=== PATIENT | female | born 1975 | race Caucasian/White ===

== ENCOUNTER → 2019-05-30 08:00 | Outpatient (CLI) | payer MEDICARE, SELFPAY ==
--- NOTE | 2019-05-30 08:07 | RAD_ITS ---
STUDY: X-RAY - ESOPHAGUS (BARIUM SWALLOW) WITH FLUOROSCOPY REASON FOR EXAM: Female, 44 years old. One-month history of dysphasia. TECHNIQUE: 18 view(s) of the esophagus were obtained following swallowing of barium. FLUOROSCOPY TIME (if supplied): (0:56) minutes/seconds COMPARISON: None. FINDINGS: There is no demonstrated esophageal foreign body. There is no demonstrated stricture or mucosal abnormality. Normal gastroesophageal junction, without a demonstrated hiatal hernia. The patient ingested a 12 mm tablet of barium. The tablet is trapped in the distal portion of the esophagus. Normal visualized aortic arch and descending thoracic aorta. Normal visualized pulmonary parenchyma. Normal visualized osseous structures of the thorax. RAD/Esophagus Only IMPRESSION: The 12 mm tablet at bedtime is trapped at the distal portion of the esophagus. Electronically Signed: Ac Varela, at 14:45 EST , Service support ,
== END ==
PROVIDERS: Family Provider Family Medicine; PCP Family Medicine; Referring Provider Otolaryngology; Visit Provider Otolaryngology
DX: R13.10 Dysphagia, unspecified (principal)
CPT/HCPCS: 74220

== ENCOUNTER → 2021-03-21 14:20 | Outpatient (CLI) | payer MEDICARE, MEDICAID, SELFPAY ==
[2021-03-21 16:21] LABS: Absolute Lymphocyte Count 1.94 X10^3/uL (0.83-4.51); Absolute Neutrophil Count 2.9 X10^3/uL (2.0-7.7); Basophil# 0.07 X10^3/uL; Basophil% 1.2 % (0-1); Eosinophil# 0.13 X10^3/uL; Eosinophils% 2.3 % (0-5); Hematocrit 40.2 % (37-47); Hemoglobin 13.9 g/dL (12.0-15.0); Lymphocyte # 1.94 X10^3/ul (0.83-4.51); Mean Corp Hgb Conc 34.6 g/dL (32-36); Mean Corpuscular Hgb 30.5 pg (27.0-32.0); Mean Corpuscular Volume 88.4 fL (81-99); Mean Platelet Vol. 10.9 fl (6.2-12.0); Monocyte# 0.65 X10^3/uL; Monocyte% 11.4 % (0-10); NRBC Flagged by Analyzer 0 % (0-5); Neutrophil % 50.9 % (47-70); Platelet Count 252 K/mm3 (150-450); RBC Distribution Width CV 11.6 % (11.6-14.6); RBC Distribution Width SD 37.1 fl (35.1-43.9); Red Blood Count 4.55 M/mm3 (4.2-5.4); White Blood Count 5.7 K/mm3 (4.4-11.0)
[2021-03-21 17:15] LABS: AST(SGOT) 6 U/L (15-37); Alanine Aminotransfer ALT/SGPT 14 U/L (13-56); Albumin, Serum 3.6 g/dL (3.2-5.0); Alkaline Phosphatase 77 U/L (45-117); Anion Gap 8 (5-15); BUN 11 mg/dL (7-18); BUN/Creat Ratio 18.4 RATIO (10-20); Calcium,Total 8.9 mg/dL (8.5-10.1); Chloride 105 mmol/L (98-107); Cholesterol 131 mg/dL (200); EST Glomerular Filtration Rate 116 mL/min (>60); Est Glom Filt Rate - Afr Amer 140 mL/min (>60); Globulin 3.6 g/dL (2.2-4.2); Glucose 197 mg/dL (74-106); High Density Lipoprotein 39 mg/dL; Potassium 3.4 mmol/L (3.5-5.1); Protein, Total 7.2 g/dL (6.4-8.2); Sodium Level 137 mmol/L (136-145); T4 Free Direct 1.35 ng/dL (0.76-1.46); Thyroid Stim Hormone (TSH) 1.14 uIU/mL (0.358-3.74); Triglycerides 64 mg/dL; Very Low Density Lipoprotein 13 mg/dL (5-40)
[2021-03-23 10:11] LABS: Thyroid Peroxidase AB < 8 IU/mL (0-34)
== END ==
PROVIDERS: Referring Provider Nurse Practitioner Adult Health; Visit Provider Nurse Practitioner Adult Health
DX: E06.9 Thyroiditis, unspecified (principal)
CPT/HCPCS: 36415; 80053; 80061; 84439; 84443; 85025; 86376

== ENCOUNTER → 2021-03-22 10:33 | Outpatient (CLI) | payer MEDICARE, MEDICAID, SELFPAY ==
--- NOTE | 2021-03-22 10:35 | US_ITS ---
STUDY: THYROID ULTRASOUND REASON FOR EXAM: Female, 45 years old. THYROIDITIS TECHNIQUE: Ultrasound evaluation of the thyroid was performed with real-time and static rosado-scale imaging. COMPARISON: None. FINDINGS: RIGHT LOBE: The right lobe of the thyroid gland measures 5.8 x 2.0 x 1.4 cm. There is a heterogeneous echotexture. In the mid right thyroid assist partially solid partially cystic nodule measuring 1.0 x 0.8 x 0.5 cm. No solid portion appears to be internal vascular flow.. In the mid to posterior right thyroid is a solid partially cystic nodule with no vascular flow measuring 4 x 4 by 3 mm. In the mid right thyroid there is a solid or cystic nodule isoechoic with a small amount of flow measuring 5 x 5 x 4 mm. LEFT LOBE: The left lobe of the thyroid gland measures 5.4 x 2.2 x 2.0 cm. There is a heterogeneous echotexture. Within the upper aspect of the left thyroid there is a partially cystic partially solid isoechoic avascular 5 x 4 x 4 mm nodule. In the upper aspect of the left thyroid there is a partially solid partially cystic isoechoic nodule with minimal stephanie nodular flow measuring 8 x 10 x 5 mm. In the mid to lower left thyroid is a solid partially cystic isoechoic nodule with a small amount of stephanie nodular an anterior nodular vascular flow measuring 2.0 x 1.8 x 1.7 cm. ISTHMUS: The isthmus measures 2 . The regional lymph nodes are normal. US/Thyroid IMPRESSION: Bilateral thyroid nodules as detailed above. The largest of which is a left side dominant partly cystic partly solid almost encapsulated appearing mass with internal vascular flow measuring 2.0 x 1.8 x 1.7 cm. The clinical history states thyroiditis history of nodules. At the time of this study though no available comparison films. These would be very helpful to establish stability. Otherwise a biopsy would be recommended of the largest dominant mass on the left side given its features of solid cystic and vascularity and dominance. There is also a nodule in the right side that shows cystic dilatation with a nodular component with vascularity which also could be considered for biopsy in the appropriate setting. Electronically Signed: Pooja Iraheta MD at 3:23 EDT Tel , Service support ,
--- NOTE | 2021-03-22 10:36 | EKG12_ITS ---
Test Reason : PALPS Blood Pressure : / mmHG Vent. Rate : 082 BPM Atrial Rate : 082 BPM P-R Int : 140 ms QRS Dur : 054 ms QT Int : 360 ms P-R-T Axes : 074 050 049 degrees QTc Int : 420 ms Normal sinus rhythm Normal ECG Confirmed by HEATHER LOVE, JAMES ([id number]), digital editor LALO FERNANDO ([id number]) on 03/25/2021 1:13:08 PM Referred By: Lisette Saucedo Confirmed By:JAMES ROMERO MD
== END ==
PROVIDERS: Referring Provider Nurse Practitioner Adult Health; Visit Provider Nurse Practitioner Adult Health
DX: E06.9 Thyroiditis, unspecified (principal); E04.2 Nontoxic multinodular goiter; R00.2 Palpitations
CPT/HCPCS: 76536; 93005

== ENCOUNTER 2021-04-20 16:33 | Emergency (ER) | payer MEDICARE, MEDICAID, SELFPAY ==
[2021-04-20 16:34] VITALS: BP 173/95; PULSE 96; RESP 16; TEMP 36.9; O2SAT 98; BMI 31.2
--- NOTE | 2021-04-20 16:48 | EDS_ITS ---
HPI History of Present Illness Chief Complaint: Lower Extremity Injury Informant: patient Occured/Mechanism Comment: There is no history of trauma. Onset/Context/Timing Onset: Weeks (Onset approximately 3 weeks) Context: Gradual Onset Timing: Continuous and Waxes and wanes Quality of Pain: Dull and Aching Location: Anterior left leg over the tibia Current Severity: Mild Maximum Severity: Severe Worsened by: Walking, weightbearing, dorsiflexion against resistance, palpation Relieved by: Nothing Associated Symptoms Associated Symptoms: Negative for Parasthesia, Weakness and Loss of Funtion Narrative Narrative: Patient is a 46-year-old woman who presents with atraumatic left anterior leg pain that started approximate 3 weeks ago. She is purchased ISRA[place] hose, hose, other types of compressive stockings/hose that have not helped. She has not applied ice. She even tried different shoes. There is no history of trauma. There is no history of running on concrete. She states she is a [employer] and works on hard surfaces. She denies paresthesia, anesthesia or motor weakness. Tetanus Immunization: 5-10 years Prior similar symptoms: No Recent Illness/Hospitalization: No PFSH PFSH Medical History no medical history no medical history Home Medications naproxen 500 mg PO BID #14 tab 04/20/21 [Rx Last Taken Unknown] Allergy/AdvReac Type Severity Reaction Status Date / Time amoxicillin Allergy Rash Verified 04/20/21 16:36 cinnamon Allergy Angioedema Verified 04/20/21 16:36 nitrofurantoin Allergy Angioedema Verified 04/20/21 16:36 [From Macrobid] Social History (Updated 04/20/21 @ 16:[address] Arron Kate MD) household members: significant other Smoking Status: Current every day smoker tobacco type: cigarettes substance use type: does not use ROS ROS ED Constitutional Constitutional ED: Denies chills, fever(s), subjective, sweats or weight loss Musculoskeletal Musculoskeletal: Reports other Details: She denies symptoms of claudication. ; Denies arthralgias, back pain, myalgias or neck pain Integumentary Denies Abrasions or rash Neurologic Neurologic: Denies paresthesias or weakness Hematologic/Lymphatic Hematologic/Lymphatic: Denies easy bleeding, easy bruising or lymphadenopathy EXAM Physical Exam Const Vital Signs: 04/20/21 16:34 Temperature 98.5 F Temperature Source Temporal Pulse Rate 96 Respiratory Rate 16 Blood Pressure 173/95 H Blood Pressure Mean 121 Pulse Ox 98 Oxygen Delivery Method Room Air Positive well nourished and well developed General Appearance ED: well developed and NAD HEENT normocephalic and atraumatic Eyes PERRL Eyes Narrative: Extraocular tach. Sclerae anicteric. Cardio regular rate and regular rhythm Extremity normal to inspection and full ROM Extremity Narrative: Patient reports painful patient over the anterior left leg. Dorsi plantarflexion against resistance causes her discomfort anteriorly. There is no soft tissue swelling. There is no pedal edema. DP and PT pulse are palpable. General Extremety ED: Negative for cyanosis or edema General Extremity: Negative for cyanosis or edema Neuro oriented x3, CN's II-XII intact bilaterally and no sensory deficits noted Sensorium / Orientation: alert Motor Exam: strength 5/5 throughout Psych mental status grossly normal Skin no wounds Lesions: no lesions Rashes: no rashes Trauma: Negative for abrasion MDM MDM MDM Narrative Medical decision making narrative: Patient has muscular pain. This is exacerbated specifically with dorsiflexion and palpation. Patient was treated with NSAID she has no contraindication. Creatinine on March 2021 was 0.6. She has no history of peptic ulcer disease. Imaging is not warranted. Discharge Plan Triage Chief Complaint: Lower Extremity Injury ED Provider: Arron Kate Dx/Rx/DC Orders Clinical Impression: Pain of left anterior lower extremity Instructions: Treating?Strains and Sprains Prescriptions: New naproxen 500 MG tablet 500 mg PO BID Qty: 14 RF: 0 Primary Care Provider: Tamanna Lombardi Referrals: [facility] Tamanna Guerrero [Primary Care Provider] - 1 Week if not improving Disposition Disposition: Home, Self Care
[2021-04-20] MEDS: Naproxen 250 MG Tablet 500 MG PO (16:57)
== END 2021-04-20 17:04 | disposition home or self-care (01) ==
PROVIDERS: Emergency Provider Emergency Medicine
DX: M79.662 Pain in left lower leg (principal); F17.210 Nicotine dependence, cigarettes, uncomplicated
CPT/HCPCS: 99283

== ENCOUNTER → 2021-04-24 | Outpatient (CLI) | payer MEDICARE, MEDICAID, SELFPAY ==
--- NOTE | 2021-04-24 | FLU_PTH ---
PATIENT: KAUR WOOD LOC: [facility] U#:[id number] AGE/SX: 46/F ROOM: RE04/24/[address]: Dr. Arthur Allen MD : 1975 BED: DIS: 04/24/2021 SPEC #: [id number] RECD: 04/24/21 11:07 STATUS: DONNA FIDE #: [id number] SANDRA: 04/24/21 00:[address]: Arthur Allen DEPT: CYTOLOGY RECD BY: Sidney Melo ENTERED: 04/25/21 09:41 SP TYPE[facility] Tissues: A - Thyroid gland, NOS B - Thyroid gland, NOS C - Thyroid gland, NOS Procedures: Special Stain Group II Surgery Specimen Level IV Cytospin Fluid HEADER OPERATION: Ultrasound-guided fine needle aspiration left thyroid PRE-OP DIAGNOSIS: Left thyroid nodule TISSUE SUBMITTED: A ? Left thyroid nodule fluid, B ? Left thyroid nodule x4 slides, C ? Left thyroid nodule fluid DIAGNOSIS CYTOLOGY A. Fine needle aspiration, left thyroid nodule (cytospin and cell block): Negative for malignant cells, consistent with benign cyst contents. See comment. B. Fine needle aspiration, left thyroid nodule (smears): Negative, consistent with benign cyst contents. See comment. C. Fine needle aspiration, left thyroid nodule (cytospin and cell block): Consistent with benign thyroid cyst contents. AM:veronique 04/25/2021 COMMENT A. Rare benign follicular cells are present. B. Rare benign follicular cells are present. Clinical correlation is necessary. CYTOLOGY STUDY Slides are reviewed. CYTOLOGY GROSS A - Received is 30 ml of red CytoLyt fluid with particles labeled with the patient's name and and designated per the requisition as left thyroid nodule. Submitted for cytology preparation including cell block. B - Received are four smears labeled with the patient's name and designated per the requisition as left thyroid nodule. Submitted for staining. C - Received is <1 ml of red bloody fluid labeled with the patient's name and and designated per the requisition as left thyroid. Submitted for cytology preparation including cell block. / veronique 04/24/21 TC:5 CPT: 23934 x2, 61397 x2, 67209
== END | disposition home or self-care (01) ==
LOC: LABSPEC 13:42
PROVIDERS: Visit Provider Surgery
DX: E04.1 Nontoxic single thyroid nodule (principal)
CPT/HCPCS: 88108; 88305; 88313

== ENCOUNTER 2021-05-08 05:31 | Day surgery (SDC) | payer MEDICARE, MEDICAID, SELFPAY ==
[2021-05-08] VITALS (7 sets, daily range): BP systolic 140–168; BP diastolic 79–86; PULSE 66–93; RESP 18–97; TEMP 36.3–37.1; O2SAT 97–100; BMI 31.0
--- NOTE | 2021-05-08 | GASB_PTH ---
PATIENT: KAUR WOOD LOC: [facility] U#:[id number] AGE/SX: 46/F ROOM: RE05/08/[address]: Dr. Arthur Allen MD : 1975 BED: DIS: 05/08/2021 SPEC #: [id number] RECD: 05/08/21 12:37 STATUS: DONNA FIDE #: [id number] SANDRA: 05/08/21 00:[address]: Arthur Allen DEPT: SURGICAL PATHOLOGY RECD BY: Sidney Melo ENTERED: 05/08/21 12:37 SP TYPE: Gastric Bx OTHR DR: Lisette Saucedo, FINISHING RANGE SUPERVISOR-C [facility] Tissues: A - Gastric mucous membrane B - Stomach, NOS C - Esophageal mucous membrane D - Esophageal mucous membrane Procedures: Surgery Specimen Level IV HEADER OPERATION: EGD ([facility] [place] PRE-OP DIAGNOSIS: Dysphagia, GERD TISSUE SUBMITTED: A. Gastric antrum, B. Plaque lesser curvature posterior wall biopsy, C. Random esophageal biopsy at 25cm, D. Esophageal biopsy at 35cm MICROSCOPIC DIAGNOSIS A. Gastric antrum, biopsy: Mild gastritis. See microscopic description and comment. B. Plaque lesser curvature posterior wall biopsy: Fragments of gastric mucosa with recent hemorrhage. C. Random esophageal biopsy at 25cm: Fragments of gastroesophageal mucosa, no pathologic diagnosis. Intestinal metaplasia (goblet cell metaplasia) not identified. See comment. D. Esophageal biopsy at 35cm: Fragments of squamous mucosa, no pathologic diagnosis. 05/10/21 COMMENT A. The results of immunohistochemistry for Helicobacter pylori will be reported separately ([id number]). B. Alcian blue/PAS stain with matched control is used in the evaluation of the specimetn. MICROSCOPIC DESCRIPTION Slides are reviewed. A. The specimen shows fragments of gastric mucosa with chronic inflammatory cells infiltrates in the lamina propria consisting of lymphocytes and plasma cells consistent with mild chronic gastritis. GROSS DESCRIPTION A. Received is one container labeled with the patient name and designated gastric antrum. The specimen consists of multiple irregular fragments of light amaya soft tissue that in aggregate measure 1.0 x 0.3 x 0.1 cm. The specimen is totally submitted in one cassette. B. Received is one container labeled with the patient name and designated plaque lesser curvature posterior wall. The specimen consists of multiple irregular fragments of light amaya soft tissue that in aggregate measure 1.0 x 0.3 x 0.1 cm. The specimen is totally submitted in one cassette C. Received is one container labeled with the patient name and designated random esophageal. The specimen consists of multiple irregular fragments of light amaya soft tissue that in aggregate measure 1.0 x 0.3 x 0.1 cm.. The specimen is totally submitted in one cassette D. Received is one container labeled with the patient name and designated esophageal. The specimen consists of multiple irregular fragments of light amaya soft tissue that in aggregate measure 1.0 x 0.3 x 0.1 cm.. The specimen is totally submitted in one cassette. /SJ:cc 05/08/21 TC:3 CPT:30754, 55932
--- NOTE | 2021-05-08 | IMM_PTH ---
PATIENT: KAUR WOOD LOC: [facility] U#:[id number] AGE/SX: 46/F ROOM: RE05/08/[address]: Dr. Arthur Allen MD : 1975 BED: DIS: 05/08/2021 SPEC #: [id number] RECD: 05/08/21 12:43 STATUS: DONNA RELexy #: [id number] SANDRA: 05/08/21 00:[address]: Arthur Allen DEPT: IMMUNOHISTOCHEMISTRY RECD BY: Jennifer Parsons ENTERED: 05/08/21 12:43 SP TYPE: IMMUNO OTHR DR: Lisette Saucedo, HEALTH EDUCATION ASSISTANT-C [facility] Tissues: Gastric mucous membrane Procedures: H Pylori (initial) PHYSICIAN & INSTITUTION [place] [id number] SPECIMEN INFORMATION: Tissue Source: Gastric antrum Clinical Info: Dysphagia Specimen Number: [id number] CPT code: 78676 METHODOLOGY: Deparaffinized sections of prefer/formalin-fixed tissue or PAP/DQ stained slides are incubated with monoclonal/polyclonal antibodies/oligonucleotide probes. Localization is made via biotin free immunoperoxidase method. Appropriate controls are performed and reacted as expected. Results on target cell population are indicated in the following table: RESULTS: ANTIBODY / CLONE RESULT H Pylori (polyclonal) negative These tests were developed and their performance characteristics determined by [facility]. They may not have been cleared or approved by the U.[place]. Food and Drug Administration. The FDA has determined that such clearance or approval is not necessary. The above immunohistochemical/dualISH markers are ordered and reviewed by the Pathologist. INTERPRETATION: Gastric antrum, biopsy: Negative for Helicobacter pylori organisms. SJ:hsayna 05/10/21
[2021-05-08] MEDS: Lactated Ringers 1,000 ML 15 ML IV (05:40)
[2021-05-08 06:09] LABS: Internal QC Validated? YES +Cl - CLEAR BKGD; Pregnancy, Urine Negative Negative
--- NOTE | 2021-05-08 06:17 | PCM.HP.BLA ---
History and Physical Date of Admission: 05/08/21 Date of Service: 04/23/21 MR#:[id number]:[id number]: KAUR GRAFF #:[id number]:1975 Provider:Opal Carrillo/Sex: 46/F [facility] Vital Signs 04/23/21 08:10 Height 5 ft 5 in Weight: 192 lb 4 oz BMI 32.0 BP 118/75 Blood Pressure Location Rt brachial Position Sitting Respiration 20 H Pulse 79 Pulse Source NIBP Temp 97.6 F L Temp Source Temporal Pulse Oximetry (%) 99 Oxygen Delivery Method room air Intake Visit Reasons: THYROID NODULE Chief Complaint: thyroid nodules Pantograph Engraver Required: No Is patient in pain?: No Allergies amoxicillin Allergy (Verified 04/23/21 08:11) Rash cinnamon Allergy (Verified 04/23/21 08:11) Angioedema nitrofurantoin [From Macrobid] Allergy (Verified 04/23/21 08:11) Angioedema Medications naproxen 500 mg PO BID #14 tab 04/20/21 [Rx Confirmed 04/23/21] gabapentin 100 mg capsule 100 mg PO BID cap 04/23/21 [History Confirmed 04/23/21] gabapentin 300 mg capsule 300 mg PO QHS cap 04/23/21 [History Confirmed 04/23/21] insulin glargine 100 unit/mL (3 mL) subcutaneous pen unit SUBCUT 04/23/21 [History Confirmed 04/23/21] omeprazole 40 mg capsule,delayed release 40 mg PO DAILY cap 04/23/21 [History Confirmed 04/23/21] Is last menstrual period known: No Post menopausal: No Patient : No PFSH Medical History (Updated 04/23/21 @ 11:[address] Arthur Allen MD) Anxiety Back pain GERD (gastroesophageal reflux disease) Hemorrhoids Multiple thyroid nodules Osteoarthritis Surgical History (Updated 04/23/21 @ 08:09 by Ernestina Caballero) History of section History of cholecystectomy History of colonoscopy History of dental surgery Family History (Updated 04/23/21 @ 08:10 by Ernestina Caballero) Mother Diabetes Dementia Sister Thyroid disorder Hypertension Cancer thyroid Father Cancer lung/ renal Kidney disease Social History (Updated 04/20/21 @ 16:[address] Arron Kate MD) household members: significant other Smoking Status: Current every day smoker tobacco type: cigarettes substance use type: does not use HPI HPI HPI: KAUR GRAFF, is a 46 F who presents to the office today for enlarging thyroid nodules and difficulty swallowing. They are referred for surgical consultation from Lisette Saucedo NP. This was discovered 2 years ago by patient's primary care physician on physical exam, however, the follow-up ultrasound of this exam finding revealed the nodules to be smaller than needed for biopsy. They do complain of a new cough. Apparently the cough has been so troublesome during this pandemic time that Ms. Graff has required a note from her primary care provider stating that she does not have Covid because otherwise she was missing 4 out of 5 days a week of work. They also do appreciate new voice changes?detailing this to stay the more she talks a deeper her voice gets and aggravated, her throat feels. They do have a history of snoring. Additionally, their weight has been decreasing and they have a history of weight loss particularly since January when she weighed 225 pounds. She states this weight loss has not been intentional but it has been secondary to her swallowing difficulties. There is a history of recent fatigue. They do also have a history of heat and cold intolerance. Other symptoms include: Difficulty with concentration, hair loss and dry skin (noted primarily this summer), and some blurry vision.. They do have a family history of thyroid disorders and a sister who was diagnosed with thyroid cancer and underwent what is described as a thyroid lobectomy and isthmusectomy as well as several cousins. There is no history of prior radiation exposure. Previous work-up has included thyroid ultrasound. Ultrasound identified 3 nodules in the right thyroid lobe and 3 nodules in the left thyroid lobe. No TI-RADS ratings were given but by my calculation the right-sided nodules had a TI-RADS rating of 2. In the left thyroid lobe there was a nodule measured at 2.0 x 1.8 x 1.7 cm and is given a TI-RADS of 3. An FNA has not been performed. Other tests include: TSH and T4 last assessed March 2021 and were within the range of normal. Regarding the patient's swallowing difficulties, she states that she underwent a barium swallow which was normal in 2019. About the same time she recalls going to an ENTs office for a very brief check of her throat and was told this was normal. She does not believe she has ever had an EGD. She states that her swallowing difficulties have been progressive and become quite significant so that she is having both liquids and solids get stuck. She denies any aspiration events. She is attempting to manage by consuming very small bites and eating lots of applesauce. She does endorse a history of GERD and is taking omeprazole. She denies any breakthrough heartburn symptoms but does occasionally note an uncomfortable fullness in her sternal region in the absence of food. ROS General General: Yes weight change and fatigue; No appetite, colon cancer, breast cancer or weakness HEENT HEENT: Yes difficulty swallowing and swollen glands; No eye injury, eye surgery or hoarseness Endo Endocrine: Yes diabetes mellitus; No thyroid disease, thyroid cancer, Hair loss, heat intolerance or cold intolerance Musc Musculoskeletal: Yes back problems and arthritis; No rheumatoid arthritis, gout or joint pain Cardio Cardiovascular: No murmur, pacemaker, heart disease, atrial fibrillation, high blood pressure, heart attack, heart stent, palpitations, shortness of breat with exertion or chest pain Psych Psychiatric: Yes anxiety; No depression or hearing voices Resp Respiratory: No shortness of breath, No sleep apnea, Yes cough, No COPD, No asthma, No emphysema and No wheezing Gastro Gastrointestinal: No abdominal pain, No nausea or vomiting, No diarrhea, No constipation, No blood in stool, Yes acid reflux, Yes hemorrhoids, No ulcers, No gallbladder problem and No black,tarry stools Nando Hematologic: No blood thinners, No blood disorders, No bleeding, No anemia and No blood clots Neuro Neurologic: No weakness Exam Const General: cooperative, healthy appearing and no acute distress Orientation: alert, awake and oriented x3 Neck Thyroid: multiple nodules on the left soft and tender, tender and other (No bruit) Lymphatic: no lymphadenopathy noted Office Procedures Fine Needle Aspiration Provider Documentation Details: Indication: Left thyroid nodule After obtaining patient consent and conducting a timeout amongst those present, the procedure was commenced by locating the suspicious nodule in the mid to inferior pole of the left thyroid lobe using ultrasound. Superficially, the skin was cleaned with an alcohol swab and a wheal of local anesthetic was created after instilling 9 ml 1% lidocaine. Then, under ultrasound guidance, multiple passes were made into the thyroid nodule using a 25-gauge needle. Once an adequate specimen was detected within the hub of the needle and bottom of the syringe, this was handed off the field. A second pass was made in a similar manner using a 22-gauge needle. This specimen, also, was passed off the field for cytopathologic evaluation. Given that there were a few pockets of cystic fluid that if aspirated may decrease the volume of the nodule, I elected to perform a third pass with a 22?gauge needle just aspirating this fluid. External pressure was applied to the neck to assist with hemostasis. A quick examination was made with ultrasound to exclude any evidence of hematoma formation. Then the surface of the neck was cleaned, dried, and a bandage was applied. Patient was gradually returned to the sitting position and after short period of monitoring was dismissed. Wound care instructions and expectations regarding pathologic processing were discussed prior to dismissal. Complications: None Estimated blood loss: 1 ml Alert Flor Alert Billing: Yes FNA [id number] Thyroid Procedure Time Out Time Out Informed consent given: Yes Consent signed: Yes Time out checklist: patient, procedure, site marked/identified, positioning of patient, supplies available, allergies confirmed and team agrees on procedure Time out staff in room: Yes Time out verified: Yes Time out date: 04/23/21 Time out time: 09:00 Assessment and Plan Assessment and Plan (1) Dysphagia: Status: Acute Qualifiers: Dysphagia type: unspecified Qualified Code(s): R13.10 - Dysphagia, unspecified Comment: This is a 46-year-old female with a past history of GERD on PPI medication who presents with progressive dysphagia to liquids and solids. She states this is largely to blame for a recent weight loss of nearly 30 pounds over the last 3 months. She had a normal esophagogram in 2019 but does not believe she had an EGD. Given that she is also under evaluation for a potential thyroid operation secondary to mass-effect symptoms, I would like to exclude an alternative source for this dysphagia and have recommended EGD under local MAC. Plan - Dr. Arthur Allen MD: EGD under local [facility] first mutually available time. 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 (2) GERD (gastroesophageal reflux disease): Status: Acute Qualifiers: Esophagitis presence: esophagitis presence not specified Qualified Code(s): K21.9 - Gastro-esophageal reflux disease without esophagitis Comment: Patient with progressive dysphagia in the setting of GERD treated with regular PPI. EGD indicated Plan - Dr. Arthur Allen MD: EGD with biopsies under local [facility] (3) Multiple thyroid nodules: Status: Acute Comment: This is a 46-year-old, euthyroid patient who presents with multiple thyroid nodules. Thyroid nodules overall have a benign sonographic appearance. I have rated the largest nodule in the mid to inferior portion of the left thyroid lobe as a TI-RADS 3. Patient has numerous symptoms in her review of systems consistent with possible mass-effect from this nodule. Therefore, although the maximal dimension is less than 2.5cm I did recommend FNA. This was undertaken during today's consultation visit and tolerated well without complication. Cytopathology currently pending. Performing concurrent work-up for possible esophageal lesion as cause for patient's dysphagia. If cytopathology were to be completely benign and esophageal work-up negative, patient may be a reasonable candidate for left thyroid lobectomy. I attempted to aspirate some of the fluid from her thyroid nodule cystic components to reduce the volume. Unfortunately there was not a dramatic collection but patient is advised to take note of any change in her symptoms to better distinguish if the nodule is causing/contributing to her emptiness. Plan - Dr. Arthur Allen MD: ?Follow-up cytopathology ?Patient provided general wound care instructions following FNA ?We will revisit thyroid nodules management dependent on cytopathology and results of EGD Coding Level of Care Code Attention Sap Hana Developer Diagnoses Dysphagia R13.10 Dysphagia type: unspecified GERD (gastroesophageal reflux disease) K21.9 Esophagitis presence: esophagitis presence not specified Multiple thyroid nodules E04.2 I have examined the patient the following changes are noted: Patient states that her swallowing difficulties to continue to progress. She states following her thyroid biopsy during our consultation visit on 04/23/2021 she is experienced more difficulties. Procedure is reviewed in detail and patient again gives percent to proceed as described. Therefore we will proceed with planned EGD under local [facility].
--- NOTE | 2021-05-08 07:15 | OP.CCLET_ITS ---
05/08/2021 Tamanna Shukla [facility] Re : [facility] This procedure was performed on Saturday, May 08, 2021. My impressions and recommendations are as follows: Impressions : - Normal examined duodenum. No specimens collected. - Gastritis. Biopsied. - A few spots with no bleeding in the stomach. Biopsied. - Z-line regular, 38 cm from the incisors. No specimens collected. - No gross lesions in esophagus. Biopsied. - Biopsies performed in the middle third of the esophagus and in the lower third of the esophagus. Recommendations : - Discharge patient to home (via wheelchair). - Resume previous diet today. - Use Prilosec OTC 20 mg PO daily today. - Await pathology results. - Telephone my office for pathology results in 1 week. - Continue present medications. My findings are described in the full procedure note, which is enclosed. If I can be of further assistance, please feel free to contact me at Doctor phone number(s): , Work: . Sincerely, Arthur Allen MD 05/08/2021 7:14:26 AM This report has been signed electronically.
--- NOTE | 2021-05-08 07:15 | OP.EGD_ITS ---
Patient Name: Iliana Graff Procedure Date: 05/08/2021 6:12 AM Date of : 1975 Age: 46 Procedure: Upper GI endoscopy Indications: Dysphagia Providers: Arthur Allen MD Medicines: See the Anesthesia note for documentation of the administered medications Patient Profile: Refer to note in patient chart for documentation of history and physical. Complications: No immediate complications. Estimated blood loss: Minimal. Procedure: Pre-Anesthesia Assessment: - The heart rate, respiratory rate, oxygen saturations, blood pressure, adequacy of pulmonary ventilation, and response to care were monitored throughout the procedure. - The anesthesia plan was to use moderate sedation/analgesia (conscious sedation). After obtaining informed consent, the endoscope was passed under direct vision. Throughout the procedure, the patient's blood pressure, pulse, and oxygen saturations were monitored continuously. The Endoscope was introduced through the mouth, and advanced to the second part of duodenum. The upper GI endoscopy was accomplished without difficulty. The patient tolerated the procedure well. Scope In: 6:37:43 AM Scope Out: 7:04:05 AM Total Procedure Duration Time 0 hours 26 minutes 22 seconds Findings: The examined duodenum was normal. No biopsies or other specimens were collected for this exam. Localized mild inflammation characterized by erythema was found on the anterior wall of the gastric antrum. Biopsies were taken with a cold forceps for histology. Estimated blood loss was minimal. Biopsies were taken with a cold forceps for Helicobacter pylori testing. Estimated blood loss was minimal. A few localized spots with no bleeding and no stigmata of recent bleeding were found in the gastric body. Biopsies were taken with a cold forceps for histology. Estimated blood loss was minimal. The cardia and gastric fundus were normal on retroflexion. The Z-line was regular and was found 38 cm from the incisors. No biopsies or other specimens were collected for this exam. No gross lesions were noted in the entire esophagus. Biopsies were taken with a cold forceps for histology. Estimated blood loss was minimal. Two biopsies were obtained with cold forceps for histology in the middle third of the esophagus, as well as two biopsies in the lower third of the esophagus. Estimated blood loss was minimal. Impression: - Normal examined duodenum. No specimens collected. - Gastritis. Biopsied. - A few spots with no bleeding in the stomach. Biopsied. - Z-line regular, 38 cm from the incisors. No specimens collected. - No gross lesions in esophagus. Biopsied. - Biopsies performed in the middle third of the esophagus and in the lower third of the esophagus. Recommendation: - Discharge patient to home (via wheelchair). - Resume previous diet today. - Use Prilosec OTC 20 mg PO daily today. - Await pathology results. - Telephone my office for pathology results in 1 week. - Continue present medications. Procedure Code(s): --- Professional --- 59051, Esophagogastroduodenoscopy, flexible, transoral; with biopsy, single or multiple Diagnosis Code(s): --- Professional --- K29.70, Gastritis, unspecified, without bleeding K31.89, Other diseases of stomach and duodenum R13.10, Dysphagia, unspecified CPT copyright 2017 [employer]. All rights reserved. The codes documented in this report are preliminary and upon certified coder review may be revised to meet current compliance requirements. Arthur Allen MD 05/08/2021 7:14:26 AM This report has been signed electronically. Number of Addenda: 0 Note Initiated On: 05/08/2021 6:12 AM
[2021-05-08 08:11] LABS: Bedside Glucose 162 mg/dL (70-110)
== END 2021-05-08 07:41 | disposition home or self-care (01) ==
LOC: EN 05:34 → AC 05:34
PROVIDERS: Visit Provider Surgery
PROC: 0DJ08ZZ Inspection of Upper Intestinal Tract, Via Natural or Artificial Opening Endoscopic (ICD-10-PCS; CPT 43235; principal; 2021-05-08 06:25)
DX: K29.70 Gastritis, unspecified, without bleeding (principal); K31.89 Other diseases of stomach and duodenum; K21.9 Gastro-esophageal reflux disease without esophagitis; R13.10 Dysphagia, unspecified; E11.9 Type 2 diabetes mellitus without complications; E04.2 Nontoxic multinodular goiter; J44.9 Chronic obstructive pulmonary disease, unspecified; M19.90 Unspecified osteoarthritis, unspecified site; F17.210 Nicotine dependence, cigarettes, uncomplicated; Z79.4 Long term (current) use of insulin; Z79.899 Other long term (current) drug therapy; Z80.8 Family history of malignant neoplasm of other organs or systems
CPT/HCPCS: 43239; 81025; 82962; 88305; 88342; J7120; J2405